=== PATIENT | female | born 1985 ===

== ENCOUNTER 2020-04-28 21:47 | Inpatient (IN) | payer OTHER ==
[~2020-04-28] VITALS: Ht 154.9 cm; Wt 63.0 kg
[2020-04-28] MEDS ORDERED: PRENATAL TABLE1 EACH PO (22:29)
== END 2020-05-01 13:33 | disposition home or self-care (01) | DRG 807 ==
LOC: SURG-SUITE 21:47 → LDR 21:47 → SURG-SUITE 04-29 16:00
PROVIDERS: ADMIT Obstetrics & Gynecology; ATTEND Obstetrics & Gynecology
PROC: 10E0XZZ Delivery of Products of Conception, External Approach (ICD-10-PCS; principal; 2020-04-29)
PROC: 0KQM0ZZ Repair Perineum Muscle, Open Approach (ICD-10-PCS; 2020-04-29)
PROC: 4A1HXFZ Monitoring of Products of Conception, Cardiac Rhythm, External Approach (ICD-10-PCS; 2020-04-29)
PROC: 3E033VJ Introduction of Other Hormone into Peripheral Vein, Percutaneous Approach (ICD-10-PCS; 2020-04-29)
DX: O42.013 Preterm premature rupture of membranes, onset of labor within 24 hours of rupture, third trimester (principal); Z37.0 Single live birth; Z3A.35 35 weeks gestation of pregnancy; O70.1 Second degree perineal laceration during delivery; Z20.828 Contact with and (suspected) exposure to other viral communicable diseases